=== PATIENT | female | born 1960 | race Two or more races ===

== ENCOUNTER 2020-05-27 20:34 | Emergency (ER) | payer MEDICAID, OTHER ==
[~2020-05-27] VITALS: Ht 154.9 cm; Wt 70.3 kg
[2020-05-27 22:00] VITALS: BP 157/86
[2020-05-27] MEDS ORDERED: ONDANSETRON ODT 4 MG TAB PO ONE (22:30)
[2020-05-27] MEDS ORDERED: KETOROLAC TROMETH 60MG/2ML VIAL IM ONE (22:30)
[2020-05-27] MEDS ORDERED: HYDROcodone-ACET 10/325MG TAB PO ONE (23:00)
== END 2020-05-27 23:06 | disposition home or self-care (01) ==
LOC: ER 20:34
DX: R22.0 Localized swelling, mass and lump, head (principal); J45.909 Unspecified asthma, uncomplicated; Z88.1 Allergy status to other antibiotic agents; W01.0XXA Fall on same level from slipping, tripping and stumbling without subsequent striking against object, initial encounter; Y93.89 Activity, other specified; Y92.89 Other specified places as the place of occurrence of the external cause; Y99.8 Other external cause status
CPT/HCPCS: 70450; 72125; 96372; 99285; J1885; Q0162